=== PATIENT | female | born 1945 | race Caucasian/White ===

== ENCOUNTER 2016-09-12 14:04 | Emergency (ER) | payer MEDICARE ==
--- NOTE | 2016-09-12 14:53 | Emergency Department Record ---
History of Present Illness - General Chief complaint: Vomiting Stated complaint: VOMITING Time Seen by Provider: 09/12/16 14:47 Source: Patient, Family Mode of Arrival: Ambulatory Limitations: No limitations - History of Present Illness Initial comments: 71 yo female presents with nausea, vomiting and diarrhea. The nausea started yesterday evening with the vomiting. She then developed diarrhea this morning that occurred very frequently but now is starting to slow down. The nausea and the vomiting have persisted. She has some cramps in the abdomen and she states it hurts in the chest with vomiting. No fever. No blood in the diarrhea or in the vomit. No sick contacts at home. Not on antibiotics currently. PCP is Gupta. HE complaint: Diarrhea, Nausea, Vomiting Onset/Timin -: Hour(s) Description of Vomiting: Watery Description of Diarrhea: Water Location: Epigastric Radiation: Epigastric Severity: Moderate Quality: Cramping Consistency: Intermittent Improves with: None Worsens with: Eating Associated Symptoms: Chest pain (with vomiting. she reports vomiting many times ), Other - Related Data Home Medications Medication Instructions Recorded Confirmed Last Taken Aspirin [Aspirin EC] 325 mg PO DAILY 09/15/14 09/12/16 09/11/16 Glipizide [Glipizide ER] 20 mg PO DAILY 09/15/14 09/12/16 09/11/16 Lisinopril/Hydrochlorothiazide 1 tab PO DAILY 09/15/14 09/12/16 09/11/16 [Lisinopril-Hctz 20-25 mg Tab] Omeprazole 20 mg PO BID 09/15/14 09/12/16 09/11/16 Glipizide [Glucotrol] 10 mg PO DAILY 03/04/15 09/12/16 09/11/16 Insulin Glargine,Hum.rec.anlog 60 unit SQ DAILY 03/04/15 09/12/16 09/11/16 [Lantus] Liraglutide [Victoza 2-Clarence] 12 unit SQ DAILY 02/21/16 09/12/16 09/11/16 Previous Rx's Medication Instructions Recorded Ondansetron [Zofran Odt] 4 mg PO NOW #1 tab.rapdis 09/12/16 Allergies Allergy/AdvReac Type Severity Reaction Status Date / Time atorvastatin Allergy Severe MUSCLE PAIN Verified 03/04/15 14:12 Corticosteroids Allergy Severe NAUSEA Verified 03/04/15 14:12 (Glucocorticoids) Estrogens Allergy Severe RAPID Verified 03/04/15 14:12 HEART RATE estrogens, conjugated Allergy Severe RAPID Verified 03/04/15 14:12 HEART RATE hydrocodone Allergy Severe ANAPHYLAXIS Verified 03/04/15 14:12 prednisone Allergy Severe NAUSEA Verified 03/04/15 14:12 simvastatin Allergy Severe NAUSEA AND Verified 03/04/15 14:12 VOMITING Sgmxywp-Fmj-Iih Reductase Allergy Severe NAUSEA AND Verified 03/04/15 14:12 Inhibitor VOMITING sulfamethoxazole Allergy Severe HIVES Verified 03/04/15 14:12 [From Bactrim] trimethoprim [From Bactrim] Allergy Severe HIVES Verified 03/04/15 14:12 albuterol AdvReac TACHYCARDIA Verified 09/12/16 14:26 Travel Screening - Travel/Exposure Within Last 30 Days Have you traveled within the last 30 days?: No Location Detail:: [place] - Travel/Exposure Within Last Year Have you traveled outside the [place] in the last year?: No - Additonal Travel Details Have you been exposed to anyone with a communicable illness?: No - Travel Symptoms Symptom Screening: None Review of Systems Constitutional: Reports: Malaise, Weakness. Denies: Chills, Fever Eyes: Denies: Eye discharge ENT: Denies: Congestion, Throat pain Respiratory: Denies: Cough, Dyspnea, Wheezes Cardiovascular: Reports: As per HPI, Chest pain. Denies: Syncope Endocrine: Reports: Fatigue Gastrointestinal: Reports: Abdominal pain, Diarrhea, Nausea, Vomiting. Denies: Constipation, Hematemesis, Hematochezia, Melena Genitourinary: Denies: Dysuria, Incontinence, Urgency Musculoskeletal: Denies: Arthralgia, Back pain, Myalgia Skin: Denies: Bruising, Change in color, Rash Neurological: Denies: Headache, Weakness Psychiatric: Denies: Anxiety Hematological/Lymphatic: Denies: Blood Clots, Easy bleeding, Easy bruising, Swollen glands Past Medical History - SOCIAL HISTORY Smoking Status: Former smoker Alcohol Use: None Drug Use: None - RESPIRATORY Hx Respiratory Disorders: Yes Hx Bronchitis: Yes (last winter) Comment:: dry cough daily - CARDIOVASCULAR Hx Cardio Disorders: Yes Hx Chest Pain: Yes (3 yrs ago-seen specialist-all"negative" for heart) Hx Edema: Yes (less edema since on Actos) Hx Heart Attack: Yes ("last couple yrs ago") Hx Hypertension: Yes (good control) Hx Palpitations: Yes (with anxiety attacks-) Comment:: Leaky valves - NEURO Hx Neuro Disorders: No Hx Weakness: Yes (rt leg) - GI Hx GI Disorders: Yes Hx Reflux: Yes Hx Hiatal Hernia: Yes (no sx repair) Hx Nausea/Vomiting: Yes (occasional RT foods) Hx Pancreatitis: Yes (10 yrs ago) Hx of Polyps: Yes (colon) - Hx Genitourinary Disorders: No Comment:: hysterectomy - ENDOCRINE Hx Endocrine Disorders: Yes Hx Diabetes: Yes Hx Thyroid Disease: No Comment:: doesn't check daily sugars/ last A1C "around 7" - MUSCULOSKELETAL Hx Musculoskeletal Disorders: Yes Hx Arthritis: Yes (osteo-hands and legs& chest) Hx Fibromyalgia: Yes (?) Hx Osteoporosis: Yes - PSYCH Hx Psych Problems: Yes Hx Anxiety: Yes Comment:: claustrophobia probs/easy to get anxiety attacks - HEMATOLOGY/ONCOLOGY Hx Hematology/Oncology Disorders: Yes Hx Anemia: Yes Hx Cancer: Yes ("precancer"-hyst/mole also) Hx Blood Transfusions: Yes Hx Blood Transfusion Reaction: No Family Medical History Any Significant Family History?: Yes Hx Cancer: Father Hx Dementia: Mother Hx Diabetes: Mother, Grandparents Hx Heart Disease: Mother Hx HTN: Mother Physical Exam - General General Appearance: Alert, Oriented x3, Cooperative, No acute distress Limitations: No limitations - Head Head exam: Normal inspection - Eye Eye exam: Normal appearance. negative: Conjunctival injection, Periorbital swelling - ENT ENT exam: Normal exam, Mucous membranes moist, Normal orophraynx Ear exam: Normal external inspection Nasal Exam: Normal inspection Mouth exam: Normal external inspection - Neck Neck exam: Normal inspection, Full ROM. negative: Tenderness - Respiratory Respiratory exam: Normal lung sounds bilaterally. negative: Respiratory distress, Rhonchi, Stridor, Wheezes - Cardiovascular Cardiovascular Exam: Regular rate, Normal rhythm, Normal heart sounds - GI/Abdominal GI/Abdominal exam: Soft, Normal bowel sounds, Tenderness (mild diffuse tenderness). negative: Diminished bowel sounds, Distended, Guarding, Rebound, Rigid - Rectal Rectal exam: Deferred - exam: Deferred - Extremities Extremities exam: Normal inspection, Full ROM, Normal capillary refill. negative: Tenderness - Back Back exam: Denies: CVA tenderness (R), CVA tenderness (L), Tenderness - Neurological Neurological exam: Alert, Normal gait, Oriented X3 - Psychiatric Psychiatric exam: Normal affect, Normal mood. negative: Agitated, Anxious - Skin Skin exam: Dry, Intact, Normal color, Warm Course Vital Signs 09/12/16 14:28 Temperature 98.1 F Pulse Rate 112 H Respiratory 20 Rate Blood Pressure 127/73 Pulse Ox 96 - Reevaluation(s) Reevaluation #1: The patient was seen and examined with vomiting and diarrhea Abdomen is soft at this time with out rebound or guarding. 09/12/16 14:54 Reevaluation #2: The labs were reviewed. No acute changes of the CBC BUN 19, CR 1.1, GFR 52, Lipase 361 The patient is feeling much improved at this point We discussed a second liter of IVF then a recheck Abdomen is soft. 09/12/16 15:39 Reevaluation #3: The CT of the abdomen/pelvis is negative 09/12/16 17:08 Reevaluation #4: The patient feels greatly improved. The CT scan was negative. Her nausea is well controlled. She was offered admission or home with very close follow up in the ER of PCP. She would like to go home at this time. She will return immediately if she has fever, pain, vomiting. She will return or see her PCP tomorrow for a recheck exam and labs. 09/12/16 17:11 Procedures - EKG Initial Date: 09/12/16 Time: 14:52 EKG: No Acute Changes (No changes from 09/14/14 with similar inferior Q waves), Unchanged From Previous (similar inferior and anterior changes compared to ) EKG Detail: Rate 99, intervals normal, [place] left, ST no acute, old inf Q waves Medical Decision Making - Lab Data Result diagrams: 09/12/16 14:40 09/12/16 14:40 Disposition Disposition: Discharge Clinical Impression: Vomiting and diarrhea Disposition: Home, Self-Care Condition: (1) Good Instructions: Acute Nausea and Vomiting (ED) Additional Instructions: Return immediately if have fever, pain, vomiting Return in the next 24 hours for a recheck of your symptoms and labs tomorrow You may take Zofran every 4-6 hours as needed for nausea. Prescriptions: Ondansetron [Zofran Odt] 4 mg PO NOW #1 tab.rapdis Forms: Patient Portal Access Time of Disposition: 17:14
[2016-09-12 14:57] LABS: BASO % 0.3 % (0-6); EOS % 0.9 % (0-6); HEMATOCRIT 41.5 % (35.0-47.0); HEMOGLOBIN 13.8 gm/dl (11.6-16.0); LYMPH % 5.8 % (16-45); MEAN CELL VOLUME 79.8 fl (81-97); MEAN CORPUSCULAR HEMOGLOBIN 26.5 pg (27-33); MEAN CORPUSCULAR HGB CONC 33.3 g/dl (32-36); MONO % 3.6 % (0-9); PLATELET COUNT 350 K/uL (130-400); RED CELL DISTRIBUTION WIDTH 14.5 % (11.5-14.5)
[2016-09-12] MEDS: 0.9 % SODIUM CHLORIDE 1,000 ML BAG IV ONE ×2 (14:57→15:47)
[2016-09-12] MEDS: ONDANSETRON HCL IV 4 MG/2 ML VIAL IVP ONE (14:57)
[2016-09-12 15:09] LABS: ALB/GLOB RATIO 1.4 (1.1-1.8); ALBUMIN 4.5 gm/dL (3.5-5.0); BILIRUBIN,TOTAL 0.56 mg/dL (0.2-1.3); CARBON DIOXIDE 24.3 mmol/L (22-30); CREATININE 1.1 mg/dL (0.52-1.04); TOTAL PROTEIN 7.8 gm/dL (6.3-8.2)
[2016-09-12 15:11] LABS: PLATELET ESTIMATE NORMAL (NORMAL)
[2016-09-12 15:57] LABS: ANION GAP 11.7 (7-16)
[2016-09-12] MEDS: ONDANSETRON 4 MG ODT TABLET SL ONE (17:34)
== END 2016-09-12 17:38 | disposition home or self-care (01) ==
LOC: ER 14:04
DX: R11.2 Nausea with vomiting, unspecified (principal); R19.7 Diarrhea, unspecified; R10.13 Epigastric pain; R07.9 Chest pain, unspecified; I10 Essential (primary) hypertension; I25.2 Old myocardial infarction; F17.210 Nicotine dependence, cigarettes, uncomplicated; E11.9 Type 2 diabetes mellitus without complications; Z79.84 Long term (current) use of oral hypoglycemic drugs
CPT/HCPCS: 99284 ×2; 96374; 96361; 83690; 84484; 80053; 85027; 74176; 93005; 93010; J2405; J7030

== ENCOUNTER 2017-10-08 16:59 | Emergency (ER) | payer MEDICARE ==
--- NOTE | 2017-10-08 17:36 | Emergency Department Record ---
History of Present Illness - General Chief complaint: Extremity Problem Stated complaint: SORE FOOT Time Seen by Provider: 10/08/17 17:14 Source: Patient Mode of Arrival: Ambulatory - History of Present Illness Initial comments: stepped on a sand [place] in [place] 5 weeks ago and getting worse unable to ambulate onit and she said 5 weeks ago she pulled it out. Onset/Timin -: Week(s) Location: Left, Foot History of Same: No Quality: Aching Consistency: Constant Improves with: Immobilization Worsens with: Weight bearing Associated Symptoms: Denies other symptoms - Related Data Home Medications Medication Instructions Recorded Confirmed Last Taken Evolocumab [Repatha Syringe] 140 mg SQ ASDIR 10/08/17 10/08/17 Unknown Previous Rx's Medication Instructions Recorded Ondansetron [Zofran Odt] 4 mg PO NOW #1 tab.rapdis 09/12/16 Cephalexin [Keflex] 500 mg PO QID #40 cap 10/08/17 Clindamycin HCl 300 mg PO Q6HR #40 capsule 10/08/17 Allergies Allergy/AdvReac Type Severity Reaction Status Date / Time atorvastatin Allergy Severe MUSCLE PAIN Verified 10/08/17 17:10 Corticosteroids Allergy Severe NAUSEA Verified 10/08/17 17:10 (Glucocorticoids) Estrogens Allergy Severe RAPID Verified 10/08/17 17:10 HEART RATE estrogens, conjugated Allergy Severe RAPID Verified 10/08/17 17:10 HEART RATE hydrocodone Allergy Severe ANAPHYLAXIS Verified 10/08/17 17:10 prednisone Allergy Severe NAUSEA Verified 10/08/17 17:10 simvastatin Allergy Severe NAUSEA AND Verified 10/08/17 17:10 VOMITING Pkawhwt-Mis-Uvk Reductase Allergy Severe NAUSEA AND Verified 10/08/17 17:10 Inhibitor VOMITING sulfamethoxazole Allergy Severe HIVES Verified 10/08/17 17:10 [From Bactrim] trimethoprim [From Bactrim] Allergy Severe HIVES Verified 10/08/17 17:10 albuterol AdvReac TACHYCARDIA Verified 10/08/17 17:10 Travel Screening - Travel/Exposure Within Last 30 Days Have you traveled within the last 30 days?: No Review of Systems Reviewed: No additional complaints except as noted below Constitutional: Reports: As per HPI. Denies: Chills, Fever, Malaise, Night sweats, Weakness, Weight change Eyes: Reports: As per HPI. Denies: Eye discharge, Eye pain, Photophobia, Vision change ENT: Reports: As per HPI. Denies: Congestion, Dental pain, Ear pain, Epistaxis , Hearing loss, Throat pain Respiratory: Reports: As per HPI. Denies: Cough, Dyspnea, Hemoptysis, Stridor, Wheezes Cardiovascular: Reports: As per HPI. Denies: Arrhythmia, Chest pain, Dyspnea on exertion, Edema, Murmurs, Orthopnea, Palpitations, Paroxysmal nocturnal dyspnea, Rheumatic Fever, Syncope Endocrine: Reports: As per HPI. Denies: Fatigue, Heat or cold intolerance, Polydipsia, Polyuria Gastrointestinal: Reports: As per HPI. Denies: Abdominal pain, Constipation, Diarrhea, Hematemesis, Hematochezia, Melena, Nausea, Vomiting Genitourinary: Reports: As per HPI. Denies: Abnormal menses, Discharge, Dyspareunia, Dysuria, Frequency, Hematuria, Incontinence, Retention, Urgency Musculoskeletal: Reports: As per HPI. Denies: Arthralgia, Back pain, Gout, Joint swelling, Myalgia, Neck pain Skin: Reports: As per HPI, Other (abscess bottom of foot). Denies: Bruising, Change in color, Change in hair/nails, Lesions, Pruritus, Rash Neurological: Reports: As per HPI. Denies: Abnormal gait, Confusion, Headache, Numbness, Paresthesias, Seizure, Tingling, Tremors, Vertigo, Weakness Psychiatric: Reports: As per HPI. Denies: Anxiety, Auditory hallucinations, Depression, Homicidal thoughts, Suicidal thoughts, Visual hallucinations Hematological/Lymphatic: Reports: As per HPI. Denies: Anemia, Blood Clots, Easy bleeding, Easy bruising, Swollen glands Past Medical History - SOCIAL HISTORY Smoking Status: Former smoker Alcohol Use: None Drug Use: None - RESPIRATORY Hx Respiratory Disorders: Yes Hx Bronchitis: Yes - CARDIOVASCULAR Hx Cardio Disorders: Yes Hx Chest Pain: Yes Hx Edema: Yes Hx Heart Attack: Yes Hx Hypertension: Yes Hx Palpitations: Yes Comment:: Leaky valves - NEURO Hx Neuro Disorders: Yes Hx Weakness: Yes (rt leg) - GI Hx GI Disorders: Yes Hx Reflux: Yes Hx Hiatal Hernia: Yes (no sx repair) Hx Nausea/Vomiting: Yes (occasional RT foods) Hx Pancreatitis: Yes Hx of Polyps: Yes (colon) - Hx Genitourinary Disorders: No Comment:: hysterectomy - ENDOCRINE Hx Endocrine Disorders: Yes Hx Diabetes: Yes Hx Thyroid Disease: No - MUSCULOSKELETAL Hx Musculoskeletal Disorders: Yes Hx Arthritis: Yes (osteo-hands and legs& chest) Hx Fibromyalgia: Yes (?) Hx Osteoporosis: Yes - PSYCH Hx Psych Problems: Yes Hx Anxiety: Yes Comment:: claustrophobia probs/easy to get anxiety attacks - HEMATOLOGY/ONCOLOGY Hx Hematology/Oncology Disorders: Yes Hx Anemia: Yes Hx Cancer: Yes ("precancer"-hyst/mole also) Hx Blood Transfusions: Yes Hx Blood Transfusion Reaction: No Family Medical History Any Significant Family History?: Yes Hx Cancer: Father Hx Dementia: Mother Hx Diabetes: Mother, Grandparents Hx Heart Disease: Mother Hx HTN: Mother Physical Exam - General General Appearance: Alert, Oriented x3, Cooperative, No acute distress - Head Head exam: Normal inspection - Eye Eye exam: Normal appearance, PERRL Pupils: Normal accommodation - ENT ENT exam: Normal exam, Mucous membranes moist, Normal external ear exam, Normal orophraynx, TM's normal bilaterally Ear exam: Normal external inspection. negative: External canal tenderness Nasal Exam: Normal inspection. negative: Discharge, Sinus tenderness Mouth exam: Normal external inspection, Tongue normal Teeth exam: Normal inspection. negative: Dental caries Throat exam: Normal inspection. negative: Tonsillar erythema, Tonsillar exudate - Neck Neck exam: Normal inspection, Full ROM. negative: Tenderness - Respiratory Respiratory exam: Normal lung sounds bilaterally. negative: Respiratory distress - Cardiovascular Cardiovascular Exam: Regular rate, Normal rhythm, Normal heart sounds - GI/Abdominal GI/Abdominal exam: Soft, Normal bowel sounds. negative: Tenderness - Rectal Rectal exam: Deferred - exam: Deferred - Extremities Extremities exam: Normal inspection, Full ROM, Normal capillary refill, Tenderness (black swollen spot plantar surface of foot) - Back Back exam: Reports: Normal inspection, Full ROM. Denies: Muscle spasm, Rash noted, Tenderness - Neurological Neurological exam: Alert, Normal gait, Oriented X3, Reflexes normal - Psychiatric Psychiatric exam: Normal affect, Normal mood - Skin Skin exam: Dry, Intact, Normal color, Warm Course Vital Signs 10/08/17 17:06 Temperature 97.9 F Pulse Rate 102 H Respiratory 20 Rate Blood Pressure 148/72 Pulse Ox 97 - Reevaluation(s) Reevaluation #1: !% lidocaine cleaned skin before and after injection with hibiclens and oppened the abscsess incision and drainage with purulent drainage and cultures sent to lab both arobic and anarobic No FB seen 10/08/17 17:41 Disposition Clinical Impression: Abscess of foot without toes, left Disposition: Home, Self-Care Condition: (1) Good Instructions: Abscess (ED) Additional Instructions: follow up with Dr. Roa in 3-4 days and return to ED if worse Prescriptions: Clindamycin HCl 300 mg PO Q6HR #40 capsule Cephalexin [Keflex] 500 mg PO QID #40 cap Forms: Patient Portal Access Time of Disposition: 17:55 Quality - Quality Measures Quality Measures: N/A - Blood Pressure Screening Does Patient Have Any of the Following: No, Active Dx of HTN Blood Pressure Classification: Hypertensive Reading Systolic Measurement: 148 Diastolic Measurement: 72 Screening for High Blood Pressure: Patient Exclusion, Hx of HTN [[id number]]
[2017-10-08] MEDS ORDERED: CLINDAMYCIN 150 MG CAP PO ONE (17:51)
[2017-10-08] MEDS ORDERED: CEPHALEXIN 500 MG CAPSULE PO STA (17:51)
[2017-10-08] MEDS ORDERED: HYDROCODONE/APAP 5/325MG TABLET PO ONE (17:53)
== END 2017-10-08 18:10 | disposition home or self-care (01) ==
LOC: ER 16:59
DX: L02.612 Cutaneous abscess of left foot (principal); I10 Essential (primary) hypertension; I25.2 Old myocardial infarction; Z87.891 Personal history of nicotine dependence
CPT/HCPCS: 10060; 99283